=== PATIENT | female | born 1965 | race Caucasian/White ===

== ENCOUNTER 2017-12-30 21:49 | Observation (INO) ==
--- NOTE | 2017-12-31 00:36 | Internal Med History&Physical ---
Date of Encounter: 12/31/17 Time of Encounter: 23:59 Internal Medicine - H&P: HPI Chief complaint: heart racing Admitted From: Home Plans for Post Hospital Care: Home History of present illness: Ms. Aguila is a 52 year old woman with a history of hypertension and diabetes who presented to [facility] with the complaint of her "heart racing and pounding" that started this evening around 6pm. As per the patient she had an initial episode in July 2017 which was short lived and did not seek medical attention. The heart racing started again on Wednesday, lasting a few minutes and again the next day. She reported associated lightheadedness with it. Today she felt the episodes were more frequent and lasting a bit longer than up to 2 minutes for which reason she sought medical attention. In the ER she was seen to be in A.fib with RVR but had normal blood pressure and mental status. She was given 1 dose of metoprolol 5mg IVP and followed by 100mg of PO tartrate. Her HR went as high as the 170s in between that time. The nut picker was called from the ER who recommended continuation of beta blockade. Of note, the patient denies any recent medications being prescribed, is not on any stimulants or OTC pills, not associated with physical activity. She takes a multivitamin with minerals in addition to her anti-hypertensives and metformin. She denies smoking or illicit drug use. She reports a family history of heart disease in her father who at age 65 for this reason. On my evaluation, the patient is seen lying comfortably in bed in no acute distress or reports feeling well. She states that the palpitations have resolved. She denies any chest pain, dyspnea or diaphoresis. She denies any pitting edema. She does not note any inciting factors. She denies any history of thrombotic events in the past. Past Med Surg Social Fam HX - Past Medical History Medical history: diabetes, hypertension Psychiatric history: no psych history - Past Surgical History Additional surgical history: 2 C/S, Rt thigh cyst removed, Lt shoulder cyst removed. - Social History Smoking Status: Never smoker Smokeless Tobacco Status: No Alcohol use: none Drug use: none - Family History Father History Unknown: Yes Living Status: Age at : 68 Cause of : CHF Hx Family Cardiac Disorders: Yes (CAD CHF) Mother History Unknown: Yes Age: 81 Living Status: Still Living Hx Family Endocrine Disorder: Yes (DM) Internal Medicine - H&P: Meds Lisinopril-HCTZ 10-12.5 [Prinzide 10-12.5] 1 each PO DAILY 12/30/17 [History] Metoprolol [Lopressor] 50 mg PO DAILY 12/30/17 [History] metFORMIN [Glucophage] 500 mg PO DAILY 12/30/17 [History] 3 Allergy/AdvReac Type Severity Reaction Status Date / Time No Known Allergies Allergy Verified 12/30/17 20:00 All Systems PM: A 10-system review of systems was performed and is negative for pertinent findings except as documented above in the HPI. - Constitutional Vitals: Temp Pulse Resp BP Pulse Ox 98.2 F 64 18 164/91 98 12/30/17 23:37 12/30/17 23:37 12/30/17 23:37 12/30/17 23:37 12/30/17 23:37 Exam: Vitals: Reviewed General: Well-developed and well-nourished white female lying comfortably in bed in no acute distress Skin: Warm and supple with no lesions or ulcers. HEENT: Moist mucous membranes. No conjunctivae pallor. Neck: No lymphadenopathy. No JVD. No carotid bruits. No palpable thyroid. Chest: Normal thoracic expansion. Normal breath sounds. Clear to auscultation. Heart: Normal S1 & S2; rhythmic. No rubs or murmurs. Questionable s2 click. Abdomen: Non-distended, soft and non-tender to palpation. No peritoneal reaction. Extremities: No clubbing, cyanosis or edema. No calf tenderness. Normal distal pulses. Neurological: Awake, alert and oriented to person, place and time. No focal deficits. Psych: Affect appropriate. Internal Med - H&P Results - Labs Labs: Outside labs were reviewed independently by me; hematologic and chemistry were within normal limits. - EKG Data Prior EKG available for review: yes EKG comments: 2 EKGs from outside hospital reviewed and negative predictive of atrial fibrillation with rapid ventricular rate. 12/31/17 00:46 - Assessment and plan (1) Atrial fibrillation with RVR Current Visit: Yes Status: Acute Assessment and plan: New-onset vs paroxysmal? Especially since she first had these symptoms 5 months ago. On my current assessment on telemetry she is rate controlled to the 60s and in normal sinus rhythm. Her [id number] score is 3 which by definition would warrant anticoagulation. She seems to have reverted and she is not at high risk for thromboembolism ( prior CVA/TIA, intracardiac thrombus, prosthetic valve or valvulopathy). There the discussion on the need and choice of anticoagulation can be deferred pending her echo and cardiology evaluation with consideration given to what she can get per her insurance. For now will place on telemetry, metroprolol tartrate 50mg BID. Obtain echo to r/o valvular heart disease. Obtain serum TSH and UDS. (2) Hypertension Current Visit: Yes Status: Chronic Assessment and plan: Will continue lisinopril-hctz daily. Qualifiers: Hypertension type: essential hypertension Qualified Code(s): I10 - Essential (primary) hypertension (3) Diabetes Current Visit: Yes Status: Acute Assessment and plan: Appears to be well-controlled on metformin 500mg alone. No evidence of complications. Will check A1C and continue home medication. No need for insulin for now but will have on accuchecks. 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 - Time Spent With Patient Total time spent is greater than 50% in coordination of care (as documented) at patient's floor/unit and/or counseling patient: 25 - 35 minutes
[2017-12-31] MEDS ORDERED: Potassium Chloride Elixir 20 MEQ/15 ML UDC PO ONE (01:33)
[2017-12-31 01:35] LABS: Amphetamine Screen,Urine Negative ng/mL (Cutoff=1000); Barbiturate Screen,Urine Negative ng/mL (Cutoff=200); Benzodiazepines Screen,Urine Negative ng/mL (Cutoff=200); Cannabinoid Screen,Urine Negative ng/mL (Cutoff = 50); Cocaine Screen,Urine Negative ng/mL (Cutoff= 300); Opiate Screen,Urine Negative ng/mL (Cutoff=300); Phencyclidine Screen,Urine Negative ng/mL (Cutoff=25)
[2017-12-31 05:32] LABS: Basophils # 0.1 K/mcL (0.0-0.2); Basophils % 0.6 %; Eosinophils % 0.3 %; Hematocrit 37.6 % (35.3-44.9); Hemoglobin 12.1 g/dL (11.5-15.4); Immature Granulocytes % 0.3 % (0-4); Lymphocytes # 1.7 K/mcL (0.6-4.6); Lymphocytes % 22.2 %; Mean Corpuscular HGB Conc 32.2 g/dL (31.6-35.5); Mean Corpuscular Hemoglobin 27.1 pg (28.0-33.3); Mean Corpuscular Volume 84.1 fL (83.0-100.0); Mean Platelet Volume 11.2 fL (9.4-12.4); Monocytes # 0.7 K/mcL (0.0-1.3); Monocytes % 8.6 %; Neutrophils # 5.3 K/mcL (1.6-8.9); Platelet Count 302 K/mcL (140-400); Red Blood Count 4.47 M/mcL (3.82-4.97); Red Cell Distribution Width 15.2 % (11.5-14.5)
[2017-12-31 05:57] LABS: Chol/HDL Ratio 5.8 (0-4.9)
[2017-12-31 06:00] LABS: Troponin I < 0.03 ng/mL (< 0.04)
[2017-12-31] MEDS ORDERED: *HR* Heparin 5,000 UNIT/ML VIAL SQ SCH (06:00)
[2017-12-31 06:03] LABS: Alanine Aminotransferase 8 Units/L (7-52); Albumin/Globulin Ratio 1.3 (1.1-2.2); Alkaline Phosphatase 93 Units/L (34-104); Aspartate Amino Transferase 12 Units/L (13-39); BUN/Creatinine Ratio 13 (6-26); Bilirubin,Total 0.3 mg/dL (0.3-1.0); Blood Urea Nitrogen 9 mg/dL (6-20); Calcium 9.9 mg/dL (8.6-10.3); Carbon Dioxide 24 mEq/L (23-29); Chloride 107 mEq/L (98-107); Glucose 140 mg/dL (70-105); Osmolality,Calculated 287 (280-300); Potassium 3.9 mEq/L (3.5-5.1); Sodium 138 mEq/L (136-145); eGFR For Non-African Americans > 60 (> 60)
[2017-12-31 06:13] LABS: Thyroid Stimulating Hormone 2.438 mcIU/mL (0.340-5.600)
[2017-12-31] MEDS ORDERED: *HR* Metformin 500 MG TABLET PO SCH (09:00)
--- NOTE | 2017-12-31 10:35 | Cardiology Consult Note ---
Addendum entered and electronically signed by Lubna Short CNP 12/31/17 11: 28: TTE with LVEF preserved, mild diastolic dysfunction, no segmental wall motion abnormalities noted. Eliquis 5mg BID noted to be $30/month. Original Note: Date of Encounter: 12/31/17 Time of Encounter: 10:00 Assessment and Plan (1) Atrial fibrillation with RVR Current Visit: Yes Status: Acute Per cardiology: -Admitted with new onset a.fib. -Was given IV lopressor and oral BB increased (was on 25mg at home). -Currently SR, average HR 63. -TTE pending. -[id number] score 3 (gender, HTN, DM). Recommend longterm anticoagulation. -K, TSH within normal limits. -Reports snoring. -Agree with increased BB. -Pending TTE, if no significant valvular dysfunction, will alexander check DOAC. -Will check Mg. -Consider outpatient sleep study, stress test, and referral to EP. (2) Hypertension Current Visit: Yes Status: Chronic Per cardiology: -Known HTN. -BP controlled. -Will continue to monitor BP. Qualifiers: Hypertension type: essential hypertension Qualified Code(s): I10 - Essential (primary) hypertension Discussion w patient/family: The assessment and plan as outlined above was discussed with the patient and/or family members who expressed understanding and agreement. All questions were answered. Thank you for involving us in the care of your patient. Please call with any questions. Discussed and reviewed with . History of Present Illness Consult date: 12/31/17 Requesting physician: Keshawn Donohue Consult reason: new onset a.fib Chief complaint: palpitations, racing heart History of present illness: Ms. Aguila is a 52 year old female with a relevant past medical history of HTN , HLD, DM who presented to [facility] with complaints of palpitations, racing heart. Reports associated dizziness. Denies current symptoms. Patient states has had intermittent episodes of symptoms since July. Patient reports episodes are becoming more frequent and lasting longer. Patient reports last night had symptoms that did not go away, so she decided to go to ER. Past Med Surg Social Fam HX - Past Medical History Attestation: Yes The following information was validated with the patient. Source: patient, old records reviewed, obtained from family Medical history: diabetes, hyperlipidemia, hypertension Psychiatric history: no psych history - Past Surgical History Additional surgical history: 2 C/S, Rt thigh cyst removed, Lt shoulder cyst removed. - Social History Smoking Status: Never smoker Smokeless Tobacco Status: No Alcohol use: none Drug use: none - Family History Father History Unknown: Yes Living Status: Age at : 68 Cause of : CHF Hx Family Cardiac Disorders: Yes (CAD CHF) Mother History Unknown: Yes Age: 81 Living Status: Still Living Hx Family Endocrine Disorder: Yes (DM) Medications and Allergies Lisinopril-HCTZ 10-12.5 [Prinzide 10-12.5] 1 each PO DAILY 12/30/17 [History] Metoprolol [Lopressor] 50 mg PO DAILY 12/30/17 [History] metFORMIN [Glucophage] 500 mg PO DAILY 12/30/17 [History] 3 Allergy/AdvReac Type Severity Reaction Status Date / Time No Known Allergies Allergy Verified 12/30/17 20:00 All Systems Review: The remainder of the systems were reviewed and are negative - Cardiovascular Cardiovascular: as per HPI, palpitations, rapid heart rate Physical Examination Vital Signs, Last 4 Hours Temp Pulse Resp BP Pulse Ox 12/31/17 07:28 98.4 F 65 16 127/78 97 General: Conversant, No Apparent Distress HEENT: Atraumatic, Normocephaly, Mucus Membranes Moist Neck: No JVD, Normal carotid pulses Cardiac: Reg Rate and Rhythm, Normal S1 and S2, No Murmur Lungs: Normal Breath Sounds, No Wheeze, Rales, Rhonchi Neuro: Alert and responsive, No focal deficits noted Abdomen: Soft, Non-Tender Skin: No rashes noted on visualized skin Musculoskeletal: No Chest Wall Tenderness Extremities: No Clubbing, No Cyanosis, No Edema, Normal Pulses Results 12/31/17 04:55 12/31/17 04:55 Lab Results Active Medications Atorvastatin Calcium (Lipitor) 40 mg PO HS FRANKIE Stop: 07/02/18 21:01 Lisinopril/HCTZ (Prinzide 10-12.5) 1 each PO DAILY FRANKIE Stop: 07/02/18 09:01 Last Admin: 12/31/17 10:21 Dose: 1 each Heparin Sodium (Porcine) (Heparin) 5,000 unit SQ Q8HCO FRANKIE Stop: 07/02/18 06:01 Last Admin: 12/31/17 05:42 Dose: 5,000 unit Metformin HCl (Glucophage) 500 mg PO DAILY [facility] PRN Reason: Protocol Stop: 07/02/18 09:01 Last Admin: 12/31/17 10:21 Dose: 500 mg Metoprolol Tartrate (Lopressor) 50 mg PO BID [facility] Stop: 07/02/18 09:01 Last Admin: 12/31/17 10:21 Dose: 50 mg Laboratory Tests 12/31/17 12/31/17 04:55 04:55 Hgb 12.1 Potassium 3.9 Creatinine 0.67 Troponin I < 0.03 TSH 2.438 - Imaging and Cardiology Echo: pending - EKG Interpretation EKG results cardiology: personally reviewed (ECG with nadja, RVR), other ( Telemetry reviewed with average HR previous 12 hours noted to be 63, SR. PVCs and PACs noted.) Consult Discharge Plan - Plan Referrals: NONE,PCP [Primary Care Provider] - aJzmín Patton [Family Provider] -
[2017-12-31 10:50] LABS: Estimated Average Glucose 137 mg/dl; Hemoglobin A1C 6.4 %
[2017-12-31 11:07] LABS: Magnesium 1.9 mg/dL (1.6-2.6)
[2017-12-31] MEDS ORDERED: Apixaban 5 MG TABLET PO SCH (11:45)
[2017-12-31 12:02] VITALS: BP 121/80
--- NOTE | 2017-12-31 13:47 | Discharge Summary ---
- NOTES TO OUTPATIENT PROVIDER Notes to Outpatient Provider: Pt has been started on BB and Eliquis for a-fib RVR. Date of Encounter: 12/31/17 Time of Encounter: 13:00 - Discharge Diagnosis (1) Atrial fibrillation with RVR Priority: Secondary Status: Acute Assessment and Plan: New-onset vs paroxysmal? Especially since she first had these symptoms 5 months ago. On my current assessment on telemetry she is rate controlled to the 60s and in normal sinus rhythm. Her [id number] score is 3 which by definition would warrant anticoagulation. She seems to have reverted and she is not at high risk for thromboembolism ( prior CVA/TIA, intracardiac thrombus, prosthetic valve or valvulopathy). There the discussion on the need and choice of anticoagulation can be deferred pending her echo and cardiology evaluation with consideration given to what she can get per her insurance. For now will place on telemetry, metroprolol tartrate 50mg BID. TSH WNL, urine drug screen negative 12/31-Pt is NSR, apical pulse 64. She denies palpitations, chest pain or SOB. Pt is able to ambulate without ANGULO or distress. Continue BB and Eliquis. Follow with cardiology in the office. Echocardiogram 12/31/17 00:18 Impressions: LVEF 60-65%. Normal LV chamber size, wall thickness and function. Mild left ventricular diastolic dysfunction. Normal right ventricular structure and function. Unable to estimate RVSP due to lack of TR jet. No significant valvular dysfunction. Left Ventricular Wall Motion: Rest Echo Findings All wall segments showed normal motion. Findings: Study Quality * Technically adequate exam. ECG Findings * Normal sinus rhythm. Left Ventricle * LVEF 60-65%. * Normal LV chamber size, wall thickness and function. * Mild left ventricular diastolic dysfunction. Right Ventricle * Normal right ventricular structure and function. Left Atrium * Mildly dilated left atrium. Right Atrium * Mildly dilated right atrium. Aortic Valve * Aortic valve not well visualized. * No aortic regurgitation. * No aortic stenosis. Mitral Valve * Normal mitral valve structure and function. * No mitral regurgitation. * No mitral stenosis. Tricuspid Valve * Normal tricuspid valve structure and function. * No tricuspid regurgitation. * Unable to estimate RVSP due to lack of TR jet. Pulmonic Valve * Normal pulmonic valve structure and function. * No pulmonic regurgitation. Aorta * Normally sized aortic root. Pericardium * The pericardium appears normal. IVC * Normal IVC dimensions and inspiratory collapse. Pulmonary Artery * Normal visualized portions of the main pulmonary artery. Interatrial Septum * No evidence of a PFO by color Doppler. (2) Hypertension Priority: Secondary Status: Chronic Assessment and Plan: Well controlled. Continue home medications. Qualifiers: Hypertension type: essential hypertension Qualified Code(s): I10 - Essential (primary) hypertension (3) Diabetes Priority: Secondary Status: Acute Assessment and Plan: Appears to be well-controlled on metformin 500mg alone. No evidence of complications. A1c 6.4%. Continue home medications. 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 Discharge discussed with: patient, family, nurse - Time Spent with Patient Total time spent providing and/or coordinating discharge services: Less than 30 minutes - Discharge Medications Prescriptions: Apixaban [Eliquis] 5 mg PO BID #60 tablet Atorvastatin [Lipitor] 40 mg PO HS #30 tablet Metoprolol [Lopressor] 50 mg PO BID #60 tablet Home Medications: Lisinopril-HCTZ 10-12.5 [Prinzide 10-12.5] 1 each PO DAILY 12/30/17 [History] metFORMIN [Glucophage] 500 mg PO DAILY 12/30/17 [History] Apixaban [Eliquis] 5 mg PO BID #60 tablet 12/31/17 [Rx] Atorvastatin [Lipitor] 40 mg PO HS #30 tablet 12/31/17 [Rx] Metoprolol [Lopressor] 50 mg PO BID #60 tablet 12/31/17 [Rx] Allergies/Adverse Reactions: 3 Allergy/AdvReac Type Severity Reaction Status Date / Time No Known Allergies Allergy Verified 12/31/17 14:11 Date of admission: 12/30/17 23:18 Primary care physician: PCP NONE Consults: 12/31/17 00:28 Consult to Cardiology [CONS] Routine Comment: Consulting Provider: Card[facility] Reason for Consult: Patient transferred for new onset A.fib. Dr Baer was made aware of the case. Call Completed: Yes Discharging clinician: Vera Gonsalves Anticipated date of discharge: 12/31/17 - Constitutional Vitals: Temp Pulse Resp BP Pulse Ox 98.2 F 56 16 121/80 96 12/31/17 11:58 12/31/17 11:58 12/31/17 11:58 12/31/17 11:58 12/31/17 11:58 General appearance: Present: A&O X 3, pleasant, no acute distress, answers questions appropriately Exam: above. - Head Head exam: Present: atraumatic, normocephalic - Eye Eye exam: Present: PERRL, conjuntiva pink, sclera anicteric Pupils: Present: PERRL - Neck Neck exam general surgery: Present: supple, trachea midline. Absent: lymphadenopathy - Respiratory Respiratory exam: Present: CTAB. Absent: accessory muscle use, rales, rhonchi, wheezes - Cardiovascular Cardiovascular exam: Present: RRR, +S1, +S2. Absent: diastolic murmur, gallop, rubs, systolic murmur - GI/Abdominal GI/Abdominal exam: Present: normal bowel sounds, soft. Absent: distended, hepatomegaly, tenderness - Extremities Exam Extremities exam: Present: normal capillary refill, normal inspection, warm, radial pulses palpable and symmetrical. Absent: calf tenderness, cyanotic, pedal edema, tenderness - Neurological Exam Neurological exam: Present: alert, oriented X3, no focal deficits. Absent: facial droop, speech deficit - Skin Skin exam: Present: dry, intact, warm. Absent: rash - Patient Status Disposition: Home, Self-Care Condition: Good Functional capacity at discharge: independent ambulation Overall status at discharge: patient is progressing back to baseline - Discharge Instructions Follow Up With: NONE,PCP [Primary Care Provider] - Jazmín Patton [Family Provider] - Additional Instructions: Follow up with your PCP in the next 3-5 days for a recheck. Take your medications as directed. Get her prescriptions filled today, U will need to take your beta brittany tonight. Return to the ER as needed for any other problems or concerns, or if your symptoms return or worsen. Resume your normal medications and return to your normal diet and activties as tolerated. - Diet and Activity Activity: increase activity as tolerated Diet: low fat, low cholesterol
== END 2017-12-31 15:35 | disposition home or self-care (01) ==
LOC: 3BNU
PROVIDERS: ADMIT Family Medicine; ATTEND Family Medicine

== ENCOUNTER 2019-11-26 00:57 | Observation (INO) ==
[2019-11-26 02:12] LABS: Basophils # 0.1 K/mcL (0.0-0.2); Basophils % 0.7 %; Eosinophils # 0.1 K/mcL (0.0-0.6); Eosinophils % 0.5 %; Hematocrit 41.5 % (35.3-44.9); Hemoglobin 13.8 g/dL (11.5-15.4); Immature Granulocytes % 0.2 % (0-4); Lymphocytes % 21.5 %; Mean Corpuscular HGB Conc 33.3 g/dL (31.6-35.5); Mean Corpuscular Hemoglobin 30.1 pg (28.0-33.3); Mean Corpuscular Volume 90.4 fL (83.0-100.0); Mean Platelet Volume 11.7 fL (9.4-12.4); Monocytes # 0.5 K/mcL (0.0-1.3); Monocytes % 5.9 %; Neutrophils # 6.6 K/mcL (1.6-8.9); Platelet Count 243 K/mcL (140-400); Red Blood Count 4.59 M/mcL (3.82-4.97); Red Cell Distribution Width 11.9 % (11.5-14.5); Segmented Neutrophils % 71.2 %; White Blood Count 9.2 K/mcL (4.3-11.1)
[2019-11-26 02:24] LABS: INR 1.1; Prothrombin Time 12.2 Seconds (9.4-12.1)
[2019-11-26 02:26] LABS: Activated Partial Thrombo Time 36.5 Seconds (26.0-36.0)
[2019-11-26 02:28] LABS: BUN/Creatinine Ratio 18 (6-26); Blood Urea Nitrogen 14 mg/dL (6-20); Calcium 10.3 mg/dL (8.6-10.3); Carbon Dioxide 20 mEq/L (23-29); Chloride 103 mEq/L (98-107); Glucose 178 mg/dL (70-105); Magnesium 1.5 mg/dL (1.6-2.6); Osmolality,Calculated 287 (280-300); Potassium 3.3 mEq/L (3.5-5.1); Sodium 136 mEq/L (136-145); eGFR For African Americans > 60 (> 60); eGFR For Non-African Americans > 60 (> 60)
[2019-11-26 02:29] LABS: Troponin I < 0.03 ng/mL (< 0.04)
[2019-11-26 02:42] LABS: Thyroid Stimulating Hormone 2.154 mcIU/mL (0.340-5.600)
[2019-11-26] MEDS ORDERED: Potassium Chloride Elixir 20 MEQ/15 ML UDC PO ONE ×2 (02:56→06:26)
[2019-11-26] MEDS ORDERED: Magnesium Sulfate 1 GM/102 ML PIGGYBACK IVPB ONE (02:57)
[2019-11-26] MEDS ORDERED: Naloxone 0.4 MG/ML INJ IVP PRN (03:39)
[2019-11-26] MEDS ORDERED: Perflutren Lipid Microsphere 1.3 ML in 0.9 % Sodium Chloride 8.7 ML IVP PRN (06:00)
[2019-11-26] MEDS ORDERED: *HR* Dextrose 50 % in Water (Vial) 50 ML VIAL IVP PRN (06:08)
[2019-11-26] MEDS ORDERED: Dextrose Gel 15 GM/37.5 ML TUBE PO PRN ×2 (06:08)
[2019-11-26] MEDS ORDERED: D5% in Water 1,000 ML IVC PRN (06:08)
[2019-11-26] MEDS: Apixaban 5 MG TABLET PO SCH ×2 (09:06→21:56)
[2019-11-26 09:27] LABS: BUN/Creatinine Ratio 16 (6-26); Blood Urea Nitrogen 10 mg/dL (6-20); Calcium 9.7 mg/dL (8.6-10.3); Carbon Dioxide 25 mEq/L (23-29); Chloride 107 mEq/L (98-107); Glucose 160 mg/dL (70-105); Osmolality,Calculated 290 (280-300); Potassium 4.6 mEq/L (3.5-5.1); Sodium 139 mEq/L (136-145); eGFR For African Americans > 60 (> 60); eGFR For Non-African Americans > 60 (> 60)
[2019-11-26 09:47] LABS: Magnesium 1.7 mg/dL (1.6-2.6)
[2019-11-26] MEDS: Insulin LISPRO 300 UNITS/3 ML VIAL SQ SCH ×2 (12:10→16:11)
[2019-11-26] MEDS ORDERED: Insulin DETEMIR 100 UNIT/ML X5UNITS SQ SCH (21:00)
[2019-11-27] MEDS: Insulin LISPRO 300 UNITS/3 ML VIAL SQ SCH ×2 (00:06→06:23)
[2019-11-27] MEDS: Metoprolol 100 MG TABLET PO SCH ×2 (00:06→08:48)
[2019-11-27] MEDS ORDERED: Regadenoson 0.4 MG/5 ML SYRINGE IVP ONE (06:10)
[2019-11-27] MEDS: Apixaban 5 MG TABLET PO SCH (08:48)
[2019-11-27 10:52] VITALS: BP 147/88
[2019-11-28] MEDS ORDERED: Aspirin 81 MG TAB.CHEW PO SCH (09:00)
== END 2019-11-27 12:04 | disposition home or self-care (01) ==
LOC: 2NNU 00:57 → EMEROOARM 00:57 → SUATTDRO 03:28 → 2NNU 03:57 → 3BNU 16:36
PROVIDERS: ADMIT Family Medicine; ATTEND Internal Medicine

== ENCOUNTER 2020-10-14 17:32 | Observation (INO) ==
[2020-10-14] MEDS ORDERED: Ondansetron 4 MG/2 ML VIAL IVP PRN (21:49)
[2020-10-14] MEDS ORDERED: Naloxone 0.4 MG/ML INJ IVP PRN (21:49)
[2020-10-14] MEDS ORDERED: Melatonin 3 MG TABLET PO PRN (21:49)
[2020-10-15] MEDS ORDERED: Dextrose Gel 15 GM/37.5 ML TUBE PO PRN ×2 (00:39)
[2020-10-15] MEDS ORDERED: D5% in Water 1,000 ML IVC PRN (00:39)
[2020-10-15] MEDS ORDERED: *HR* Dextrose 50 % in Water (Vial) 50 ML VIAL IVP PRN (00:39)
[2020-10-15] MEDS: Apixaban 5 MG TABLET PO SCH ×3 (01:01→19:37)
[2020-10-15] MEDS ORDERED: DilTIAZem 50 MG/50 ML IV.SOLN IVC SCH (01:15)
[2020-10-15 02:56] LABS: Hematocrit 37.3 % (35.3-44.9); Hemoglobin 12.3 g/dL (11.5-15.4); Mean Platelet Volume 11.4 fL (9.4-12.4); Platelet Count 230 K/mcL (140-400); Red Cell Distribution Width 12.1 % (11.5-14.5)
[2020-10-15 03:01] LABS: Magnesium 1.8 mg/dL (1.6-2.6)
[2020-10-15 03:03] LABS: BUN/Creatinine Ratio 16 (6-26); Blood Urea Nitrogen 10 mg/dL (6-20); Calcium 9.4 mg/dL (8.6-10.3); Carbon Dioxide 24 mEq/L (23-29); Chloride 109 mEq/L (98-107); Glucose 136 mg/dL (70-105); Osmolality,Calculated 291 (280-300); Potassium 3.4 mEq/L (3.5-5.1); Sodium 140 mEq/L (136-145); eGFR For African Americans > 60 (> 60); eGFR For Non-African Americans > 60 (> 60)
[2020-10-15 03:04] LABS: INR 1.4; Prothrombin Time 15.8 Seconds (9.4-12.1); Troponin I < 0.03 ng/mL (< 0.04)
[2020-10-15 03:07] LABS: Activated Partial Thrombo Time 32.5 Seconds (26.0-36.0)
[2020-10-15] MEDS: Insulin LISPRO 300 UNITS/3 ML VIAL SUBQ SCH ×4 (07:22→16:47)
[2020-10-15] MEDS: Metoprolol XL (24 HR) Succ 50 MG TAB.ER.24H PO SCH (07:58)
[2020-10-15] MEDS: Lisinopril-HCTZ 20-12.5mg TABLET PO SCH (07:58)
[2020-10-15] MEDS: DilTIAZem CD (24hr) 120 MG CAP.ER.24H PO SCH (14:48)
[2020-10-15] MEDS: Magnesium Oxide 400 MG TABLET PO SCH (16:56)
[2020-10-16 02:43] LABS: BUN/Creatinine Ratio 14 (6-26); Blood Urea Nitrogen 9 mg/dL (6-20); Calcium 10.3 mg/dL (8.6-10.3); Carbon Dioxide 23 mEq/L (23-29); Chloride 108 mEq/L (98-107); Chol/HDL Ratio 3.5 (0-4.9); Glucose 109 mg/dL (70-105); Osmolality,Calculated 287 (280-300); Potassium 3.9 mEq/L (3.5-5.1); Sodium 139 mEq/L (136-145); eGFR For African Americans > 60 (> 60); eGFR For Non-African Americans > 60 (> 60)
[2020-10-16] MEDS: Insulin LISPRO 300 UNITS/3 ML VIAL SUBQ SCH ×2 (08:08→12:54)
[2020-10-16] MEDS: Lisinopril-HCTZ 20-12.5mg TABLET PO SCH (10:16)
[2020-10-16] MEDS: Apixaban 5 MG TABLET PO SCH (10:16)
[2020-10-16] MEDS: Magnesium Oxide 400 MG TABLET PO SCH (10:16)
[2020-10-16] MEDS: DilTIAZem CD (24hr) 120 MG CAP.ER.24H PO SCH (10:54)
[2020-10-16] MEDS: Metoprolol XL (24 HR) Succ 50 MG TAB.ER.24H PO SCH (10:57)
[2020-10-16 11:59] VITALS: BP 125/81
== END 2020-10-16 13:56 | disposition home or self-care (01) ==
LOC: 2ANU → SUATTDRO 21:16
PROVIDERS: ADMIT Internal Medicine; ATTEND Family Medicine

== ENCOUNTER 2020-10-21 03:18 | Observation (INO) ==
[2020-10-21 04:15] LABS: Basophils # 0.1 K/mcL (0.0-0.2); Basophils % 0.6 %; Eosinophils # 0.1 K/mcL (0.0-0.6); Eosinophils % 0.6 %; Hematocrit 45.8 % (35.3-44.9); Immature Granulocytes % 0.4 % (0-4); Lymphocytes # 2.9 K/mcL (0.6-4.6); Lymphocytes % 27.5 %; Mean Corpuscular HGB Conc 33.2 g/dL (31.6-35.5); Mean Corpuscular Hemoglobin 29.9 pg (28.0-33.3); Mean Platelet Volume 11.6 fL (9.4-12.4); Monocytes # 0.9 K/mcL (0.0-1.3); Neutrophils # 6.7 K/mcL (1.6-8.9); Platelet Count 291 K/mcL (140-400); Red Blood Count 5.09 M/mcL (3.82-4.97); Red Cell Distribution Width 12.1 % (11.5-14.5); Segmented Neutrophils % 62.9 %; White Blood Count 10.7 K/mcL (4.3-11.1)
[2020-10-21 04:16] LABS: Hemoglobin 15.2 g/dL (11.5-15.4)
[2020-10-21 04:23] LABS: INR 1.4
[2020-10-21 04:26] LABS: Activated Partial Thrombo Time 34.7 Seconds (26.0-36.0)
[2020-10-21 04:37] LABS: BUN/Creatinine Ratio 24 (6-26); Blood Urea Nitrogen 23 mg/dL (6-20); Calcium 11.4 mg/dL (8.6-10.3); Carbon Dioxide 22 mEq/L (23-29); Chloride 98 mEq/L (98-107); Glucose 124 mg/dL (70-105); Osmolality,Calculated 287 (280-300); Potassium 3.7 mEq/L (3.5-5.1); Sodium 136 mEq/L (136-145); eGFR For African Americans > 60 (> 60); eGFR For Non-African Americans > 60 (> 60)
[2020-10-21 04:38] LABS: Troponin I < 0.03 ng/mL (< 0.04)
[2020-10-21] MEDS: Metoprolol XL (24 HR) Succ 50 MG TAB.ER.24H PO SCH (05:21)
[2020-10-21] MEDS ORDERED: Ondansetron 4 MG/2 ML VIAL IVP PRN (05:56)
[2020-10-21] MEDS ORDERED: Naloxone 0.4 MG/ML INJ IVP PRN (05:56)
[2020-10-21] MEDS ORDERED: Apixaban 5 MG TABLET PO SCH (09:00)
[2020-10-21] MEDS ORDERED: D5% in Water 1,000 ML IVC PRN (10:43)
[2020-10-21] MEDS ORDERED: Dextrose Gel 15 GM/37.5 ML TUBE PO PRN ×2 (10:43)
[2020-10-21] MEDS ORDERED: *HR* Dextrose 50 % in Water (Vial) 50 ML VIAL IVP PRN (10:43)
[2020-10-21] MEDS: Insulin LISPRO 300 UNITS/3 ML VIAL SUBQ SCH ×2 (12:57→17:07)
[2020-10-21] MEDS ORDERED: Perflutren Lipid Microsphere 1.3 ML in 0.9 % Sodium Chloride 8.7 ML IVP PRN (15:38)
[2020-10-21] MEDS ORDERED: DilTIAZem CD (24hr) 120 MG CAP.ER.24H PO SCH (21:00)
[2020-10-21] MEDS ORDERED: Insulin LISPRO 300 UNITS/3 ML VIAL SUBQ SCH (21:00)
[2020-10-22 06:11] LABS: BUN/Creatinine Ratio 18 (6-26); Blood Urea Nitrogen 14 mg/dL (6-20); Calcium 10.4 mg/dL (8.6-10.3); Carbon Dioxide 28 mEq/L (23-29); Chloride 100 mEq/L (98-107); Glucose 102 mg/dL (70-105); Osmolality,Calculated 285 (280-300); Potassium 3.7 mEq/L (3.5-5.1); Sodium 137 mEq/L (136-145); eGFR For African Americans > 60 (> 60); eGFR For Non-African Americans > 60 (> 60)
[2020-10-22] MEDS: Insulin LISPRO 300 UNITS/3 ML VIAL SUBQ SCH ×2 (07:08→11:00)
[2020-10-22] MEDS: Metoprolol XL (24 HR) Succ 50 MG TAB.ER.24H PO SCH (07:42)
[2020-10-22] MEDS ORDERED: 0.9 % Sodium Chloride 2,000 ML ONE (13:28)
[2020-10-22] MEDS ORDERED: Heparin 1,000 UNITS/500 mL 500 ML ONE (13:28)
[2020-10-22] MEDS ORDERED: *HR* Heparin 10,000 UNIT/10 ML VIAL ONE (13:28)
[2020-10-22] MEDS ORDERED: ISOVUE-370 200 ML INFUS..BTL ONE (13:29)
[2020-10-22] MEDS ORDERED: Nitroglycerin 1,000 MCG/5 ML VIAL IV ONE (13:29)
[2020-10-22] MEDS ORDERED: *HR* Midazolam HCl 2 MG/2 ML VIAL ONE (13:36)
[2020-10-22] MEDS ORDERED: *HR* FentaNYL (PF) 100 MCG/2 ML VIAL ONE (13:36)
[2020-10-22 16:31] VITALS: BP 103/69
[2020-10-22] MEDS ORDERED: Apixaban 5 MG TABLET PO SCH (21:00)
[2020-10-23] MEDS ORDERED: Cholecalciferol (D-3) 1,000 UNIT (25MCG) TABLET PO SCH (09:00)
== END 2020-10-22 16:52 | disposition home or self-care (01) ==
LOC: EMEROOARM 03:18 → CDU 03:18 → SUATTDRO 06:05 → CDU 06:39 → 3BNU 13:09
PROVIDERS: ADMIT Internal Medicine; ATTEND Family Medicine

== ENCOUNTER 2020-11-11 10:00 | Observation (INO) ==
[2020-11-11] MEDS ORDERED: DilTIAZem CD (24hr) 120 MG CAP.ER.24H PO SCH (18:00)
[2020-11-11] MEDS: *HR* Metformin 500 MG TABLET PO SCH (20:32)
[2020-11-11] MEDS: Apixaban 5 MG TABLET PO SCH (20:32)
[2020-11-12] MEDS: Apixaban 5 MG TABLET PO SCH ×2 (09:22→21:29)
[2020-11-12] MEDS: *HR* Metformin 500 MG TABLET PO SCH ×2 (09:22→21:29)
[2020-11-12] MEDS: Lisinopril-HCTZ 20-12.5mg TABLET PO SCH (09:22)
[2020-11-13 06:27] VITALS: O2SAT 96
[2020-11-13] MEDS: *HR* Metformin 500 MG TABLET PO SCH (08:58)
[2020-11-13] MEDS: Apixaban 5 MG TABLET PO SCH (08:59)
[2020-11-13] MEDS: Lisinopril-HCTZ 20-12.5mg TABLET PO SCH (08:59)
[2020-11-13] MEDS ORDERED: Cholecalciferol (D-3) 1,000 UNIT (25MCG) TABLET PO SCH (09:00)
[2020-11-13] MEDS ORDERED: Ascorbic Acid 500 MG TABLET PO SCH (09:00)
[2020-11-13 16:38] VITALS: BP 145/89; PULSE 53; TEMP 97.5
== END 2020-11-13 19:23 | disposition home or self-care (01) ==
LOC: 2NENU
PROVIDERS: ADMIT Internal Medicine Clinical Cardiac Electrophysiology; ATTEND Internal Medicine Clinical Cardiac Electrophysiology

== ENCOUNTER 2021-06-29 14:35 | Inpatient (IN) ==
[2021-06-29 15:22] LABS: Basophils # 0.1 K/mcL (0.0-0.2); Basophils % 0.8 %; Eosinophils # 0.1 K/mcL (0.0-0.6); Eosinophils % 0.8 %; Hematocrit 40.5 % (35.3-44.9); Hemoglobin 13.5 g/dL (11.5-15.4); Immature Granulocytes % 0.2 % (0-4); Lymphocytes # 1.7 K/mcL (0.6-4.6); Lymphocytes % 27.6 %; Mean Corpuscular HGB Conc 33.3 g/dL (31.6-35.5); Mean Corpuscular Hemoglobin 30.5 pg (28.0-33.3); Mean Corpuscular Volume 91.4 fL (83.0-100.0); Mean Platelet Volume 11.7 fL (9.4-12.4); Monocytes # 0.4 K/mcL (0.0-1.3); Monocytes % 6.2 %; Neutrophils # 4.1 K/mcL (1.6-8.9); Platelet Count 252 K/mcL (140-400); Red Blood Count 4.43 M/mcL (3.82-4.97); Red Cell Distribution Width 12.2 % (11.5-14.5); Segmented Neutrophils % 64.4 %; White Blood Count 6.3 K/mcL (4.3-11.1)
[2021-06-29 15:32] LABS: INR 1.5; Prothrombin Time 16.2 Seconds (9.4-12.1)
[2021-06-29 15:35] LABS: Activated Partial Thrombo Time 38.1 Seconds (26.0-36.0)
[2021-06-29 15:44] LABS: BUN/Creatinine Ratio 16 (6-26); Blood Urea Nitrogen 12 mg/dL (6-20); Calcium 10.7 mg/dL (8.6-10.3); Carbon Dioxide 27 mEq/L (23-29); Chloride 101 mEq/L (98-107); Glucose 201 mg/dL (70-105); Magnesium 1.6 mg/dL (1.6-2.6); Osmolality,Calculated 289 (280-300); Potassium 3.2 mEq/L (3.5-5.1); Sodium 137 mEq/L (136-145); eGFR For African Americans > 60 (> 60); eGFR For Non-African Americans > 60 (> 60)
[2021-06-29 15:45] LABS: Troponin I < 0.03 ng/mL (< 0.04)
[2021-06-29 15:58] LABS: Thyroid Stimulating Hormone 1.648 mcIU/mL (0.340-5.600)
[2021-06-29] MEDS ORDERED: Naloxone 0.4 MG/ML INJ IVP PRN (16:04)
[2021-06-29] MEDS ORDERED: Acetaminophen 325 MG TABLET PO PRN (16:04)
[2021-06-29] MEDS ORDERED: Mag Hydrox/Al Hydrox/Simeth 30 ML UDC PO PRN (16:04)
[2021-06-29] MEDS ORDERED: Ondansetron ODT 4 MG TAB.RAPDIS SL PRN (16:04)
[2021-06-29] MEDS ORDERED: Melatonin 3 MG TABLET PO PRN (16:04)
[2021-06-29] MEDS ORDERED: Perflutren Lipid Microsphere 1.3 ML in 0.9 % Sodium Chloride 8.7 ML IVP PRN (16:06)
[2021-06-29 16:09] LABS: Amphetamine Screen,Urine Negative ng/mL (Cutoff=1000); Barbiturate Screen,Urine Negative ng/mL (Cutoff=200); Benzodiazepines Screen,Urine Negative ng/mL (Cutoff=200); Cannabinoid Screen,Urine Negative ng/mL (Cutoff = 50); Cocaine Screen,Urine Negative ng/mL (Cutoff= 300); Opiate Screen,Urine Negative ng/mL (Cutoff=300); Phencyclidine Screen,Urine Negative ng/mL (Cutoff=25)
[2021-06-29] MEDS ORDERED: *HR* Dextrose 50 % in Water (Syg) 50 ML SYRINGE IVP PRN (17:30)
[2021-06-29] MEDS ORDERED: D5% in Water 1,000 ML IVC PRN (17:30)
[2021-06-29] MEDS ORDERED: Dextrose Gel 15 GM/37.5 ML TUBE PO PRN ×2 (17:30)
[2021-06-29] MEDS: Apixaban 5 MG TABLET PO SCH (19:52)
[2021-06-29] MEDS: Insulin LISPRO 300 UNITS/3 ML VIAL SUBQ SCH (22:25)
[2021-06-30 02:07] LABS: Hematocrit 40.4 % (35.3-44.9); Hemoglobin 13.3 g/dL (11.5-15.4); Mean Corpuscular HGB Conc 32.9 g/dL (31.6-35.5); Mean Corpuscular Hemoglobin 30.2 pg (28.0-33.3); Mean Corpuscular Volume 91.8 fL (83.0-100.0); Mean Platelet Volume 11.4 fL (9.4-12.4); Platelet Count 238 K/mcL (140-400); Red Cell Distribution Width 12.1 % (11.5-14.5); White Blood Count 7.2 K/mcL (4.3-11.1)
[2021-06-30 02:25] LABS: BUN/Creatinine Ratio 17 (6-26); Blood Urea Nitrogen 10 mg/dL (6-20); Calcium 10.3 mg/dL (8.6-10.3); Carbon Dioxide 27 mEq/L (23-29); Chloride 105 mEq/L (98-107); Glucose 105 mg/dL (70-105); Osmolality,Calculated 289 (280-300); Potassium 3.6 mEq/L (3.5-5.1); Sodium 140 mEq/L (136-145); eGFR For African Americans > 60 (> 60); eGFR For Non-African Americans > 60 (> 60)
[2021-06-30] MEDS: Apixaban 5 MG TABLET PO SCH ×2 (08:07→20:04)
[2021-06-30] MEDS: Insulin LISPRO 300 UNITS/3 ML VIAL SUBQ SCH ×4 (08:07→21:10)
[2021-06-30 09:17] LABS: Magnesium 2.3 mg/dL (1.6-2.6)
[2021-07-01 01:57] LABS: Basophils % 0.4 %; Eosinophils # 0.1 K/mcL (0.0-0.6); Eosinophils % 0.9 %; Hematocrit 38.3 % (35.3-44.9); Hemoglobin 12.6 g/dL (11.5-15.4); Immature Granulocytes % 0.3 % (0-4); Lymphocytes # 2.1 K/mcL (0.6-4.6); Lymphocytes % 22.7 %; Mean Corpuscular HGB Conc 32.9 g/dL (31.6-35.5); Mean Corpuscular Hemoglobin 30.4 pg (28.0-33.3); Mean Corpuscular Volume 92.5 fL (83.0-100.0); Mean Platelet Volume 11.7 fL (9.4-12.4); Monocytes # 0.8 K/mcL (0.0-1.3); Monocytes % 8.4 %; Neutrophils # 6.3 K/mcL (1.6-8.9); Platelet Count 225 K/mcL (140-400); Red Blood Count 4.14 M/mcL (3.82-4.97); Red Cell Distribution Width 12.4 % (11.5-14.5); Segmented Neutrophils % 67.3 %; White Blood Count 9.3 K/mcL (4.3-11.1)
[2021-07-01 02:21] LABS: BUN/Creatinine Ratio 18 (6-26); Blood Urea Nitrogen 13 mg/dL (6-20); Calcium 10.5 mg/dL (8.6-10.3); Carbon Dioxide 27 mEq/L (23-29); Chloride 107 mEq/L (98-107); Glucose 104 mg/dL (70-105); Osmolality,Calculated 286 (280-300); Sodium 138 mEq/L (136-145); eGFR For African Americans > 60 (> 60); eGFR For Non-African Americans > 60 (> 60)
[2021-07-01] MEDS: Insulin LISPRO 300 UNITS/3 ML VIAL SUBQ SCH ×4 (07:12→20:01)
[2021-07-01] MEDS: Apixaban 5 MG TABLET PO SCH ×2 (09:04→20:00)
[2021-07-01] MEDS: Lisinopril-HCTZ 20-12.5mg TABLET PO SCH (09:05)
[2021-07-01] MEDS ORDERED: Magnesium Sulfate 1 GM/102 ML PIGGYBACK IVPB ONE (13:19)
[2021-07-02 05:16] LABS: Basophils % 0.5 %; Eosinophils # 0.1 K/mcL (0.0-0.6); Eosinophils % 1.5 %; Hematocrit 39.2 % (35.3-44.9); Hemoglobin 12.8 g/dL (11.5-15.4); Immature Granulocytes % 0.2 % (0-4); Lymphocytes % 32.6 %; Mean Corpuscular HGB Conc 32.7 g/dL (31.6-35.5); Mean Corpuscular Hemoglobin 30.5 pg (28.0-33.3); Mean Corpuscular Volume 93.3 fL (83.0-100.0); Mean Platelet Volume 11.6 fL (9.4-12.4); Monocytes # 0.5 K/mcL (0.0-1.3); Monocytes % 7.9 %; Neutrophils # 3.5 K/mcL (1.6-8.9); Platelet Count 225 K/mcL (140-400); Red Cell Distribution Width 12.5 % (11.5-14.5); Segmented Neutrophils % 57.3 %; White Blood Count 6.1 K/mcL (4.3-11.1)
[2021-07-02 05:45] LABS: BUN/Creatinine Ratio 21 (6-26); Blood Urea Nitrogen 13 mg/dL (6-20); Calcium 10.6 mg/dL (8.6-10.3); Carbon Dioxide 27 mEq/L (23-29); Chloride 106 mEq/L (98-107); Glucose 110 mg/dL (70-105); Osmolality,Calculated 289 (280-300); Potassium 4.1 mEq/L (3.5-5.1); Sodium 139 mEq/L (136-145); eGFR For African Americans > 60 (> 60); eGFR For Non-African Americans > 60 (> 60)
[2021-07-02] MEDS: Insulin LISPRO 300 UNITS/3 ML VIAL SUBQ SCH ×4 (08:02→20:58)
[2021-07-02] MEDS: Lisinopril-HCTZ 20-12.5mg TABLET PO SCH (08:06)
[2021-07-02] MEDS: Apixaban 5 MG TABLET PO SCH ×2 (08:06→20:59)
[2021-07-03 05:00] VITALS: O2SAT 99
[2021-07-03 07:55] VITALS: BP 115/64; PULSE 42; TEMP 97.9
[2021-07-03] MEDS: Insulin LISPRO 300 UNITS/3 ML VIAL SUBQ SCH (08:29)
[2021-07-03] MEDS: Lisinopril-HCTZ 20-12.5mg TABLET PO SCH (08:47)
[2021-07-03] MEDS: Apixaban 5 MG TABLET PO SCH (08:47)
== END 2021-07-03 11:35 | disposition home or self-care (01) | DRG 310 ==
LOC: EMEROOARM 14:35 → 2NENU 14:35 → SUATTDRO 16:21 → 2NENU 16:52 → SUATTDRO 07-02 14:51
PROVIDERS: ADMIT Family Medicine; ATTEND Internal Medicine